=== PATIENT | male | born 1945 | race African-American/Black ===

== ENCOUNTER 2017-01-09 12:42 | Emergency (ER) | payer OTHER ==
[2017-01-09 12:48] VITALS: RESP 18
--- NOTE | 2017-01-09 15:06 | EDPHY ---
H & P Stated Complaint: tripped and fell last night hitting head and face/laceration/ denies loc Source: Patient Exam Limitations: No limitations - Personal History Current Tetanus/Diphtheria Vaccine: Unsure Tetanus Vaccine Date: < 10 YEARS - Medical/Surgical History Hx Asthma: No Hx Chronic Respiratory Disease: No Hx Diabetes: No Hx Cardiac Disease: No Hx Renal Disease: No Hx Cirrhosis: No Hx Alcoholism: No Hx HIV/AIDS: No Hx Splenectomy or Spleen Trauma: No Other PMH: htn - Social History Smoking Status: Never smoked Time Seen by Provider: 01/09/17 14:11 HPI/ROS: CHIEF COMPLAINT: Facial trauma, neck pain HISTORY OF PRESENT ILLNESS: Patient presents to the ED for evaluation of facial trauma, headache and neck pain. The patient had a mechanical fall last night. He fell while walking on concrete. He struck his right cheek. Since that time he has had a persistent headache and neck pain. The patient denies any acute numbness or weakness. The patient denies any chest, back or abdominal pain. The patient reports his symptoms are mild in nature. The patient is not anticoagulated. The patient denies any acute medical complaints such as chest pain or shortness of breath. REVIEW OF SYSTEMS: A comprehensive 10 point review of systems is otherwise negative aside from elements mentioned in the history of present illness. (Alex Lagos) - Physical Exam Exam: General Appearance: Alert, no distress Head: Superficial abrasion below right eye from likely injury from eye glasses , tenderness and soft tissue swelling noted over the right zygomatic arch Eyes: Pupils equal, round, reactive ENT, Mouth: No hemotympanum, no oral trauma Neck: Nontender, trachea midline, mild tenderness along the lateral aspect of the cervical spine Respiratory: No chest wall tender, subcutaneous air, lungs clear bilaterally Cardiovascular: Regular rate and rhythm Abdomen: Abdomen is soft and nontender, pelvis stable Skin: No lacerations, No abrasion Back: No midline T/L/S pain Extremities: Nontender, full range of motion Neurological: A&Ox3, normal motor function, normal sensory exam (Alex Lagos) Constitutional: Initial Vital Signs Temperature (C) 36.8 C 01/09/17 12:45 Heart Rate 81 01/09/17 12:45 Respiratory Rate 18 01/09/17 12:45 Blood Pressure 132/74 H 01/09/17 12:45 O2 Sat (%) 96 01/09/17 12:45 O2 Delivery Mode Room Air Allergies/Adverse Reactions: Sulfa (Sulfonamide Antibiotics) Allergy (Mild, Verified 01/09/17 12:45) DIZZY Home Medications: Medication Instructions Recorded Aspirin 81mg 05/28/10 Hyzaar 05/28/10 Lipitor 10 mg 05/28/10 Norvasc 5mg 05/28/10 Medical Decision Making ED Course/Re-evaluation: 3:40 p.m.-CT scan results discussed with the patient and his . They understand the need to follow up promptly for the lytic lesions in the cervical spine. No prior history of multiple myeloma or other tumor. The right cheek wound was cleansed. Tetanus given. (Joy Treviño) The patient presents to the emergency department for evaluation of headache and neck pain following a mechanical fall. The patient will be taken for a CT scan of the head and cervical spine given his complaints. My expectation is is the studies are negative the patient can be discharged home with customary aftercare instructions. Patient will have his tetanus updated. The patient will be turned over to Dr. Joy Treviño at shift change to take the results of his CT reports. (Alex Lagos) Differential Diagnosis: Differential diagnosis considered includes intracranial hemorrhage, skull fracture, facial bone fracture, cervical spine fracture (Alex Lagos) - Data Points Medications Given: Discontinued Medications Diphtheria/Tetanus/Acell Pertussis (Boostrix) 0.5 ml IM .ONCE ONE Stop: 01/09/17 16:07 Last Admin: 01/09/17 16:09 Dose: 0.5 ml Departure - Departure Disposition: Home, Routine, Self-Care Clinical Impression: Facial contusion, Cervical strain, acute Condition: Good Instructions: Facial Contusion (ED) Additional Instructions: 1. Take Ibuprofen or Motrin 600 mg by mouth three times a day. 2. Ice as directed 3. Return to the ED for severe headache, numbness, weakness or other concerns 4. Follow up with Dr. Gonzalez for further evaluation of the lytic lesions in cervical spine. Referrals: Parker Gonzalez MD [Primary Care Provider] - As per Instructions
[2017-01-09] MEDS ORDERED: TDAP ADULT 0.5 ML INJ (BOOSTRIX) IM ONE (16:06)
[2017-01-09 16:08] VITALS: BP 131/88; PULSE 74; TEMP 98.1; O2SAT 98
== END 2017-01-09 16:08 | disposition home or self-care (01) ==
DX: S16.1XXA Strain of muscle, fascia and tendon at neck level, initial encounter (principal); S00.83XA Contusion of other part of head, initial encounter; I10 Essential (primary) hypertension; Z23 Encounter for immunization; W18.39XA Other fall on same level, initial encounter; Y93.01 Activity, walking, marching and hiking

== ENCOUNTER 2017-11-24 19:15 | Inpatient (IN) | payer OTHER ==
[2017-11-24] MEDS ORDERED: ACETAMINOPHEN 500 MG TAB ONE (19:31)
[2017-11-24] MEDS ORDERED: ACETAMINOPHEN 500 MG TAB PO ONE (19:33)
--- NOTE | 2017-11-24 19:46 | EDPHY ---
H & P Stated Complaint: fver of unknown origin 3 ays Time Seen by Provider: 11/24/17 19:35 HPI/ROS: Chief Complaint: Fever HPI: 72-year-old male presenting with fevers, chills and fatigue for the last 3 days. He has not been taking any medicines for this. He has had increasing fatigue today and is presenting for evaluation. Denies cough. No pain abdominal pain. No rash. No urinary urgency or frequency. No chest pain or shortness of breath. No recent travel. No neck pain or stiffness. Has had a mild headache. Has a history of hypertension hyperlipidemia. Denies any other symptoms at this time. ROS: 10 point Review of Systems is negative except as noted in the HPI. PMH: Hypertension, hyperlipidemia Social History: No smoking, no alcohol, no recreational drug use Family History: non-contributory Physical Exam: Gen: Awake, Alert, uncomfortable appearing, warm to touch HEENT: Nose: no rhinorrhea Eyes: PERRLA, EOMI Mouth: Moist mucosa Neck: Supple, no JVD Chest: nontender, lungs clear to auscultation Heart: S1, S2 normal, no murmur, tachycardic Abd: Soft, non-tender, no guarding Back: no CVA tenderness, no midline tenderness Ext: no edema, non-tender Skin: no rash Neuro: CN II-XII intact, Sensation grossly intact, Strength 5/5 in bilateral upper and lower extremities - Personal History Current Tetanus/Diphtheria Vaccine: Yes Current Tetanus Diphtheria and Acellular Pertussis (TDAP): Yes Tetanus Vaccine Date: < 10 YEARS - Medical/Surgical History Hx Asthma: No Hx Chronic Respiratory Disease: No Hx Diabetes: No Hx Cardiac Disease: No Hx Renal Disease: No Hx Cirrhosis: No Hx Alcoholism: No Hx HIV/AIDS: No Hx Splenectomy or Spleen Trauma: No Other PMH: htn - Social History Smoking Status: Never smoked Constitutional: Initial Vital Signs Temperature (C) 39.5 C H 11/24/17 19:20 Heart Rate 104 H 11/24/17 19:20 Respiratory Rate 20 11/24/17 19:20 Blood Pressure 89/49 L 11/24/17 19:20 O2 Sat (%) 94 11/24/17 19:20 O2 Delivery Mode Nasal Cannula O2 (L/minute) 2 Allergies/Adverse Reactions: Sulfa (Sulfonamide Antibiotics) Allergy (Mild, Verified 01/09/17 12:45) DIZZY Home Medications: Medication Instructions Recorded Aspirin 81mg 05/28/10 Hyzaar 05/28/10 Lipitor 10 mg 05/28/10 Norvasc 5mg 05/28/10 Medical Decision Making - Diagnostics Imaging Results: Imaging Impressions Chest X-Ray 11/24/17 19:43 Impression: Mild bronchitis. No other findings for acute cardiopulmonary abnormality. ED Course/Re-evaluation: 9-year-old male who meets SIRS criteria with fever of unknown source. Will proceed down the sepsis pathway. Patient's lactic acid is noted at 3.7. Severe sepsis criteria has been met and documented. I have ordered 1 g of ceftriaxone IV. Still have no source face sinus symptoms or findings. Chest x-ray is negative. Awaiting urinalysis results. Patient is heart rate has come down after 2.5 L of fluid but remains hypotensive but his map is 63. . I discussed with Dr. Dewey, hospitalist. Will admit to the Step-Down Unit. Will continue to hydrate. Hold off on pressors at this time. Patient is feeling improved. - Data Points Laboratory Results: Laboratory Results 11/24/17 19:40 11/24/17 19:40 11/24/17 11/24/17 11/24/17 19:40 19:40 19:40 WBC 13.15 10^3/uL H 10^3/uL (3.80-9.50) RBC 4.22 10^6/uL L 10^6/uL (4.40-6.38) Hgb 13.2 g/dL L g/dL (13.7-17.5) Hct 39.3 % L % (40.0-51.0) MCV 93.1 fL fL (81.5-99.8) MCH 31.3 pg pg (27.9-34.1) MCHC 33.6 g/dL g/dL (32.4-36.7) RDW 13.1 % % (11.5-15.2) Plt Count 199 10^3/uL 10^3/uL (150-400) MPV 11.3 fL fL (8.7-11.7) Neut % (Auto) 88.2 % H % (39.3-74.2) Lymph % (Auto) 4.8 % L % (15.0-45.0) [place] % (Auto) 6.4 % % (4.5-13.0) Eos % (Auto) 0.0 % L % (0.6-7.6) Baso % (Auto) 0.1 % L % (0.3-1.7) Nucleat RBC Rel Count 0.0 % % (0.0-0.2) Absolute Neuts (auto) 11.61 10^3/uL H 10^3/uL (1.70-6.50) Absolute Lymphs (auto) 0.63 10^3/uL L 10^3/uL (1.00-3.00) Absolute Monos (auto) 0.84 10^3/uL H 10^3/uL (0.30-0.80) Absolute Eos (auto) 0.00 10^3/uL L 10^3/uL (0.03-0.40) Absolute Basos (auto) 0.01 10^3/uL L 10^3/uL (0.02-0.10) Absolute Nucleated RBC 0.00 10^3/uL 10^3/uL (0-0.01) Immature Gran % 0.5 % % (0.0-1.1) Immature Gran # 0.06 10^3/uL 10^3/uL (0.00-0.10) PT 14.4 SEC SEC (12.0-15.0) INR 1.10 (0.83-1.16) APTT 27.0 SEC SEC (23.0-38.0) VBG Lactic Acid Sodium 137 mEq/L mEq/L (135-145) Potassium 3.5 mEq/L mEq/L (3.3-5.0) Chloride 101 mEq/L mEq/L (97-110) Carbon Dioxide 23 mEq/l mEq/l (22-31) Anion Gap 13 mEq/L mEq/L (8-16) BUN 18 mg/dL mg/dL (7-23) Creatinine 1.2 mg/dL mg/dL (0.7-1.3) Estimated GFR 60 Glucose 154 mg/dL H mg/dL (70-100) Calcium 9.5 mg/dL mg/dL (8.5-10.4) Total Bilirubin 1.5 mg/dL H mg/dL (0.1-1.4) 11/24/17 19:40 WBC RBC Hgb Hct MCV MCH MCHC RDW Plt Count MPV Neut % (Auto) Lymph % (Auto) [place] % (Auto) Eos % (Auto) Baso % (Auto) Nucleat RBC Rel Count Absolute Neuts (auto) Absolute Lymphs (auto) Absolute Monos (auto) Absolute Eos (auto) Absolute Basos (auto) Absolute Nucleated RBC Immature Gran % Immature Gran # PT INR APTT VBG Lactic Acid 3.7 mmol/L H mmol/L (0.7-2.1) Sodium Potassium Chloride Carbon Dioxide Anion Gap BUN Creatinine Estimated GFR Glucose Calcium Total Bilirubin Medications Given: Discontinued Medications Acetaminophen (Tylenol) 1,000 mg PO EDNOW ONE Stop: 11/24/17 19:34 Last Admin: 11/24/17 19:34 Dose: 1,000 mg Sodium Chloride (Ns) 1,000 mls @ 0 mls/hr IV ONCE ONE; Wide Open PRN Reason: Protocol Stop: 11/24/17 19:49 Last Admin: 11/24/17 20:11 Dose: 1,000 mls Sodium Chloride (Ns) 1,000 mls @ 0 mls/hr IV ONCE ONE; Wide Open PRN Reason: Protocol Stop: 11/24/17 19:49 Last Admin: 11/24/17 20:11 Dose: 1,000 mls Ceftriaxone Sodium/Dextrose (Rocephin 1 Gm (Premix)) 50 mls @ 100 mls/hr IV EDNOW ONE PRN Reason: Protocol Stop: 11/24/17 20:36 Last Admin: 11/24/17 20:21 Dose: 50 mls Sodium Chloride (Ns) 2,500 mls @ 5,000 mls/hr 30 ml/kg infuse over 30 min ( 2500 ml) IV EDNOW ONE PRN Reason: Protocol Stop: 11/24/17 20:36 Last Admin: 11/24/17 20:24 Dose: 500 mls Departure - Departure Disposition: [facility] Acute Clinical Impression: Sepsis, Dehydration, Fever, unknown origin Condition: Serious Referrals: NONE *PRIMARY CARE P,. [Primary Care Provider] - As per Instructions
[2017-11-24] MEDS ORDERED: NS 1,000 ML IV ONE ×3 (19:48→21:28)
[2017-11-24 19:54] LABS: PLATELET COUNT 199 10^3/uL (150-400)
[2017-11-24 20:03] LABS: INR 1.1 (0.83-1.16); PROTIME(PATIENT) 14.4 SEC (12.0-15.0)
[2017-11-24] MEDS ORDERED: NS 2,500 ML IV ONE ×2 (20:07→21:36)
[2017-11-24] MEDS ORDERED: ONDANSETRON DISINTEGRATING 4 MG TAB PO PRN (21:36)
[2017-11-24] MEDS ORDERED: ALBUTEROL 3 ML DEYVIAL IH PRN (21:36)
[2017-11-24] MEDS ORDERED: ONDANSETRON 4 MG/2 ML VIAL IVP PRN (21:36)
[2017-11-24] MEDS ORDERED: IBUPROFEN 200 MG TAB PO PRN (21:36)
[2017-11-24] MEDS ORDERED: oxyCODONE IR 5 MG TAB PO PRN (21:36)
[2017-11-24] MEDS ORDERED: PROMETHAZINE HCL 25 MG/ML INJ IVP PRN (21:36)
[2017-11-24] MEDS ORDERED: CEFEPIME HCL 2 GM in NS 100 ML IV SCH (22:00)
[2017-11-24] MEDS: AZITHROMYCIN IV 500 MG in NS 250 ML IV SCH (22:24)
--- NOTE | 2017-11-24 22:30 | GHP ---
[f rep st] HISTORY AND PHYSICAL DATE OF ADMISSION: 11/24/2017 CHIEF COMPLAINT: Fever. HISTORY: This is a 72-year-old man with past medical history that includes hypertension and hyperlip idemia, who presents with fevers, rigors, and fatigue for 3 days. He notes today the fever was quite persistent and he is feeling increasingly fatigued. He denies any real localizing symptoms, includi ng cough, shortness of breath, nausea, vomiting, urinary complaints, diarrhea. He denies any rashes or skin lesions. He has not had any recent travel. He denies any recent sick contacts. PAST MEDICAL HISTORY: Includes hypertension and hyperlipidemia. PAST SURGICAL HISTORY: Reviewed and noncontributory. FAMILY HISTORY: This was reviewed and is noncontributory. SOCIAL HISTORY: Patient is a nonsmoker, nondrinker, nondrug user. He lives independently. REVIEW OF SYSTEMS: 10-point review of systems obtained and negative except as per HPI. MEDICATIONS: Include: 1. Amlodipine. 2. [place]-3 fatty acids. 3. Multivitamin. 4. Losartan/hydrochlorothiazide. 5. Latanoprost eyedrops. 6. Cholecalciferol. 7. Combigan. 8. Atorvastatin. ALLERGIES: Sulfa. PHYSICAL EXAM: VITAL SIGNS: BP 99/53, heart rate 92, respiratory rate 18, O2 saturation 94% on 2 L. T-max of 39.4. DATA: Labs are notable for a white blood cell count of 13.15, hematocrit 39.3. Lactic acid initiall y 3.7, then 1.6 post fluids. Bilirubin 1.5. Chest x-ray personally reviewed and interpreted, shows mild bronchitis. ASSESSMENT/PLAN: This is a 72-year-old man, past medical history of hypertension, hyperlipidemia, pr esenting with sepsis presumed secondary to pulmonary source. 1. Sepsis. Again, patient without real localizing symptoms, but persistent fever, elevated lactate, and mild hypotension on arrival. He has been started on the sepsis protocol and will be treated wit h cefepime and azithromycin for the time being. Again, I presume this is likely respiratory source g iven his mildly abnormal chest x-ray and mild hypoxia without any other obvious source noted at this time. Blood cultures and urine cultures are pending. 2. Bronchitis versus bronchopneumonia. Again, as per above. Started on ceftriaxone and Zithromax a nd with cultures pending. Respiratory PCR panel also pending at this time. 3. Hypertension with current hypotension. Holding his home blood pressure medications for the time being. 4. Hyperglycemia. This is a presumed stress response. We will recheck in the morning. 5. Acute kidney injury. Patient with mild increase in his creatinine from his usual baseline, at 1. 2 from usual 1.0. This is in the setting of sepsis and will trend. DISPOSITION: Observation status for the time being. Patient is new to my care. Old records reviewed, summarized as per HPI and past medical history. Ca re plan reviewed with Dr. Wayne in the emergency department, including plans for antibiotic therapy. /[id number]/MODL
[2017-11-25 05:19] LABS: PLATELET COUNT 159 10^3/uL (150-400)
--- NOTE | 2017-11-25 08:42 | HOSPPROG ---
Hospitalist Progress Note Assessment/Plan: #Severe sepsis: elevated lactate/WBC, fever and bacteremia. #Streptococcus bacteremia: cont CTX CAP: CTX/Azithro #Leukocytosis: up to 22. Cont CAP coverage. #Hypotension: improved with fluids #AHRF: CAP and mild volume overload. BNP elevated, NL EF #HLD: statin #h/o Benign HTN: hold BP meds #Mod MR/TR: watch with IVFs #Lactic acidosis: due to acute illness #Diet: regular #DVT ppx: Lovenox #Disp: cont inpatient admission for IV abx, culture pending Subjective: denies sxs other than fever. Occasional right sided mouth pain Objective: Vital Signs Temp Pulse Resp BP Pulse Ox 37.3 C 86 20 109/66 98 11/25/17 07:00 11/25/17 07:00 11/25/17 07:00 11/25/17 07:00 11/25/17 07:00 Laboratory Results 11/25/17 04:30 11/25/17 04:30 11/24/17 11/25/17 11/26/17 05:59 05:59 05:59 Intake Total 5750 Output Total 800 Balance 4950 PT 14.4 SEC (12.0-15.0) 11/24/17 19:40 INR 1.10 (0.83-1.16) 11/24/17 19:40 - Time Spent With Patient Time Spent with Patient: greater than 35 minutes Time Spent with Patient: Greater than 35 minutes spent on this patients care, greater than 50% of time spent counseling, educating, and coordinating care regarding the above mentioned plan. - Physical Exam Constitutional: no apparent distress Eyes: PERRL Ears, Nose, Mouth, Throat: moist mucous membranes, other (no oral ulcer, redness or abscess) Cardiovascular: regular rate and rhythym Respiratory: no rales or rhonchi, aegophony, other (decreased BS at bases, ) Gastrointestinal: normoactive bowel sounds Genitourinary: no bladder fullness Skin: warm Musculoskeletal: full muscle strength Neurologic: AAOx3, CN II-XII Intact Psychiatric: depressed ICD10 Worksheet Patient Problems: Problems Problem Status Onset Dehydration Acute Fever, unknown origin Acute Sepsis Acute
[2017-11-25] MEDS ORDERED: BRIMONIDINE/TIMOLOL 5 ML OPHT.BTL EACHEYE SCH ×2 (09:00→21:00)
[2017-11-25] MEDS: OMEGA-3 FATTY ACIDS 1,000 MG CAP PO SCH (09:29)
[2017-11-25] MEDS: ENOXAPARIN 40 MG/0.4 ML SYR SC SCH (09:29)
[2017-11-25] MEDS: ATORVASTATIN CALCIUM 10 MG TAB PO SCH (09:29)
[2017-11-25] MEDS: MULTIVITAMINS 1 EACH TAB PO SCH (09:29)
[2017-11-25] MEDS: CHOLECALCIFEROL VIT D3 1,000 UNITS TAB PO SCH (09:29)
--- NOTE | 2017-11-25 10:05 | CPEKG ---
Heart Rate: 92 RR Interval: 652 P-R Interval: 184 QRSD Interval: 86 QT Interval: 329 QTC Interval: 407 P [place]: 59 QRS [place]: -58 T Wave [place]: 22 EKG Severity - ABNORMAL ECG - EKG Impression: SINUS RHYTHM EKG Impression: LEFT ANTERIOR FASCICULAR BLOCK EKG Impression: BORDERLINE T WAVE ABNORMALITIES EKG Impression: INCOMPLETE RIGHT BUNDLE BRANCH BLOCK Electronically Signed By: Narciso Mathews 27-Nov-2017 08:11:56
[2017-11-25] MEDS: ACETAMINOPHEN 325 MG TAB PO PRN ×2 (11:46→21:24)
--- NOTE | 2017-11-25 13:35 | GCON ---
[f rep st] CONSULTATION PULMONARY CRITICAL CARE CONSULTATION DATE OF CONSULTATION: 11/25/2017 REASON FOR CONSULTATION: Fever, sepsis, pneumonia. HISTORY OF PRESENT ILLNESS: The patient is a relatively healthy 72-year-old gentleman who was admitted last night with a 2-3 day history of fevers, chills, and fatigue. He had an occasional dry cough, but was not bringing up any mucus. He denied any significant shortness of breath. He was febrile to over 39 degrees. On admission, he was tachycardic and hypotensive at approximately 90/50. He was admitted with a diagnosis of sepsis. Initial white blood cell count was elevated. Chest x-ray was within normal limits. Urinalysis was unremarkable. He was given saline and started on ceftriaxone and azithromycin. Followup chest x-ray today demonstrates the development of a left lower lobe infiltrate. Last night, he had increased shortness of breath, increased oxygen requirements, and a variable cough without sputum. PAST MEDICAL HISTORY: Remarkable for systemic hypertension and hyperlipidemia. MEDICATIONS: On admission, included losartan/hydrochlorothiazide, Norvasc, and Lipitor. Full he also has a history of glaucoma and is on eyedrops. SOCIAL HISTORY: . Alcohol and tobacco are negative. No recent travel. No exposure to individuals who have recently been sick. No pets. 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 FAMILY HISTORY: Noncontributory. There is no history of heart disease or lung disease. No urinary or GI problems. ALLERGIES: Sulfa preparations. PHYSICAL EXAMINATION: GENERAL: Reveals a pleasant gentleman who is awake and alert, watching soccer. VITAL SIGNS: Blood pressure is approximately 110/60, respiratory rate 24. On 2 L, saturations are 97%. Current temperature is 38.4. HEENT/NECK: Unremarkable for lymphadenopathy or thyromegaly. There is no jugular venous distention. No pharyngitis. PULMONARY: The chest reveals bibasilar rales, left greater than right with egophony at the left base. There are no rhonchi. There is no wheezing. HEART: Regular in rate and rhythm. There are no significant murmurs, no gallops. ABDOMEN: Soft, mildly distended with increased bowel tones. There is no tenderness. EXTREMITIES: Unremarkable for edema, cords, or tenderness. NEUROLOGIC: Examination is within normal limits. LABORATORY/IMAGING: X-ray is as outlined above, with a new left lower lobe infiltrate. White blood cell count is 22,000 with a shift to the left, hematocrit is 35.5, platelets are normal. PT and PTT are normal. Initial lactate was 3.7, on followup 2.3. Basic metabolic panel is within normal limits with the exception of a mildly low CO2 at 21, anion gap is normal, BUN and creatinine are normal. AST and ALT are mildly elevated at 81 and 85 respectively, with a normal bilirubin. BNP is 2000. Albumin 2.6. Procalcitonin elevated at 1.28. Urinalysis on admission was normal. ASSESSMENT and PLAN: Community-acquired left lower lobe pneumonia. Chest x- ray has progressed since admission and now shows a retrocardiac infiltrate in posterior left lower lobe. Examination is consistent with this. Respiratory panel is negative. Is being treated with ceftriaxone and azithromycin, appropriate for an unknown community-acquired pneumonia. He is on p.r.n. albuterol. No changes to Xopenex, secondary to relative tachycardia in this elderly gentleman. Chest x-ray and laboratory will be followed. A sputum culture can be obtained if he brings up any mucus. Current medications will be continued. Enoxaparin for DVT prophylaxis will be continued. Further plans and recommendations will be made based on his progress over the next 12-24 hours. /[id number]/MODL MTDD
--- NOTE | 2017-11-25 14:27 | ASMTCMCOM ---
CM Note CM Note Notes: 72yr old male admitted for Sepsis-PNA. He hasa Hx of HTN and HLD. Patient lives with his . Not anticipating that patient will have discharge needs. Date Signed: 11/25/2017 02:27 PM Electronically Signed By:Stacie Parham LCSW
[2017-11-25] MEDS: LEVALBUTEROL 1.25 MG/3 ML DEYVIAL IH SCH ×2 (14:34→22:15)
--- NOTE | 2017-11-25 14:52 | PDMN ---
Medical Necessity Medical necessity: Change to IP, as of 11/25/17, per MD; los >2 m for ongoing management of severe sepsis w/hypotension, elevated WBC & lactate r/t suspected lung source; admit to Step-Down ICU for further workup/monitoring, IVFs & IV abx ; per progress note & order 11/25/17
--- NOTE | 2017-11-25 15:43 | ECHO ---
[email or web address] [address] [address] Main: [phone] Fax: Transthoracic Echocardiogram Name: ERICKA HOPPER MR#: [id number] Study Date: 11/25/2017 Study Time: 02:04 PM Date of : 1945 Age: 72 year(s) Height: 180.3 cm (71 in.) Weight: 87.54 kg (193 lb.) BSA: 2.08 m2 Gender: Male Examination: Echo Indication: SOB/LE edema, elevated BNP Image Quality: Contrast: Requested by: Jacque Deras BP: 111 mmHg/61 mmHg Heart Rate: Rhythm: Indication: SOB/LE edema, elevated BNP Procedure Staff Chief Commercial Officer: Clara Bustos RDCS Reading Physician: Jayro Pratt MD Requesting Provider: Conclusions: No pericardial effusion. Moderate mitral regurgitation with left atrial enlargement. Normal right ventricular systolic pressure with moderate to severe tricuspid regurgitation. Ejection fraction of 70 75%. Measurements: Chambers Valvular Assessment AV/MV Valvular Assessment TV/PV Normal Normal Normal Name Value Range Name Value Range Name Value Range Ao Hilda (MM): 3.7 cm (2.2 cm-3.7 AV Vmax: 1.39 m/s (1 m/s-1.7 TR Vmax: 2.92 mm/s ( - ) cm) m/s) TR PGmax: 34 mmHg ( - ) IVSd (2D): 0.8 cm (0.6 cm-1.1 AV meanP mmHg ( - ) syst. PAP: 39 mmHg ( - ) cm) [place] (VTI): 3.0 cm ( - ) LVDd (2D): 4.4 cm (4.2 cm-5.9 MV E Vmax: 1.20 m/s ( - ) cm) MV A Vmax: 0.65 m/s ( - ) LVDs (2D): 2.3 cm (2.1 cm-4 MV E/A: 1.85 ( - ) cm) MV meanP mmHg ( - ) LVPWd (2D): 1.0 cm (0.6 cm-1 cm) MVA (Vmax): 2.4 m/s ( - ) LVOTd 2.1 cm 2.1 cm mm LVEF (MOD4): 74 % (>=55 %) EF Range: 70-75 % Continued Measurements: Chambers Valvular Assessment AV/MV Valvular Assessment TV/PV Name Value Name Value Name Value LADs: 4.1 cm MV Annulus: 3.5 cm CVP (est.): 5 mmHg LADs Lon.3 cm MV E' Septal: 0.11 m/s LA Area: 20.8 cm2 MV E/E' Septal: 10.50 MV E/E' Lateral: 11.00 Patient: ERICKA HOPPER Study Date: 11/25/2017 Page 1 of 2 02:04 PM MV VTI: 29.30 cm MR ERO: 0.180 cm2 MR PISA radius: 6 mm MR Reg. Volume: 23 ml MR Reg. Fraction: 8 % Findings: Left Ventricle: Normal size left ventricle. No LV hypertrophy. Global hypercontractility of the left ventricle. The ejection fraction is estimated to be 70-75 %. No regional wall motion abnormality. Normal diastolic LV function. Right Ventricle: Normal size right ventricle. Left Atrium: The left atrium is mildly dilated. Right Atrium: The right atrium is mildly dilated. Mitral Valve: The mitral valve is normal in appearance and function. Moderate mitral valve regurgitation is present. Aortic Valve: The aortic valve is normal in appearance and function. The aortic valve is tri-leaflet. Minimal aortic cusp calcification is noted. Tricuspid Valve: The tricuspid valve is normal in appearance and function. Moderate to severe tricuspid valve regurgitation. The pulmonary artery pressure is normal. Pulmonic Valve: The pulmonic valve is normal in appearance and function. Aorta: The aorta is normal. Pericardium: No pericardial effusion. (No Signature Object) Patient: ERICKA HOPPER Study Date: 11/25/2017 Page 2 of 2 02:04 PM [id number]
[2017-11-25] MEDS: BRIMONIDINE/TIMOLOL 5 ML OPHT.BTL EACHEYE SCH (20:12)
[2017-11-25] MEDS: LATANOPROST 0.005% 2.5 ML OPHT DROPS EACHEYE SCH (20:13)
[2017-11-25] MEDS: AZITHROMYCIN IV 500 MG in NS 250 ML IV SCH (20:54)
[2017-11-25] MEDS ORDERED: TIMOLOL 0.5% EACHEYE SCH (21:00)
[2017-11-26] MEDS: ACETAMINOPHEN 325 MG TAB PO PRN (02:22)
[2017-11-26 05:27] LABS: PLATELET COUNT 159 10^3/uL (150-400)
[2017-11-26] MEDS: LEVALBUTEROL 1.25 MG/3 ML DEYVIAL IH SCH ×3 (05:30→20:57)
[2017-11-26] MEDS: BRIMONIDINE/TIMOLOL 5 ML OPHT.BTL EACHEYE SCH ×2 (08:24→20:52)
[2017-11-26] MEDS: ENOXAPARIN 40 MG/0.4 ML SYR SC SCH (08:25)
[2017-11-26] MEDS ORDERED: POTASSIUM CL 20 MEQ/15 ML UDCUP PO ONE (08:49)
[2017-11-26] MEDS: CHOLECALCIFEROL VIT D3 1,000 UNITS TAB PO SCH (09:19)
[2017-11-26] MEDS: MULTIVITAMINS 1 EACH TAB PO SCH (09:19)
[2017-11-26] MEDS: ATORVASTATIN CALCIUM 10 MG TAB PO SCH (09:19)
[2017-11-26] MEDS: OMEGA-3 FATTY ACIDS 1,000 MG CAP PO SCH (09:19)
[2017-11-26] MEDS ORDERED: FUROSEMIDE 20 MG/2 ML VIAL IVP ONE ×2 (10:55→12:15)
[2017-11-26] MEDS ORDERED: PROTOCOL MAGNESIUM 1 DOSE IV PRN (10:56)
[2017-11-26] MEDS ORDERED: PROTOCOL POTASSIUM 1 DOSE MISC PRN (10:56)
--- NOTE | 2017-11-26 11:00 | HOSPPROG ---
Hospitalist Progress Note Assessment/Plan: #Severe sepsis: elevated lactate/WBC, fever and bacteremia. #Streptococcus bacteremia: cont abx CAP: CTX/Azithro #Leukocytosis: #Hypotension: resolved #AHRF: CAP and mild volume overload. BNP elevated, NL EF -Lasix x 1 #HLD: statin #h/o Benign HTN: hold BP meds #Mod MR/TR: monitor #Lactic acidosis: due to acute illness #Diet: regular #DVT ppx: Lovenox Plan -Lasix low dose x 1 -likely able to transfer out of the SDU today -Cont abx as is -repeat lactic acid to document resolution d/w team during ICU rounds Subjective: Feeling better. Some swelling at legs. no cp, down to 2 L O2 Objective: Vital Signs Temp Pulse Resp BP Pulse Ox 36.9 C 79 15 115/65 92 11/26/17 08:20 11/26/17 08:20 11/26/17 08:20 11/26/17 08:20 11/26/17 08:20 Laboratory Results 11/26/17 05:15 11/26/17 05:15 11/25/17 11/26/17 11/27/17 05:59 05:59 05:59 Intake Total 1705 Output Total 775 Balance 930 PT 14.4 SEC (12.0-15.0) 11/24/17 19:40 INR 1.10 (0.83-1.16) 11/24/17 19:40 - Physical Exam Constitutional: no apparent distress Eyes: PERRL, EOMI Ears, Nose, Mouth, Throat: moist mucous membranes, hearing normal, ears appear normal Cardiovascular: regular rate and rhythym, edema (trace) Respiratory: reduced air movement Gastrointestinal: normoactive bowel sounds, soft, non-tender abdomen Skin: warm Neurologic: AAOx3 Psychiatric: interacting appropriately, not anxious, not encephalopathic Lymph, Heme, Immunologic: No petechiae ICD10 Worksheet Patient Problems: Problems Problem Status Onset Dehydration Acute Fever, unknown origin Acute Sepsis Acute
--- NOTE | 2017-11-26 11:58 | PDINTPN ---
[employer] Manager Progress Note Assessment/Plan: Assessment: Febrile illness with bacteremia, secondary to pneumonia, community-acquired. Improving. Fevers resolving. He had little in the way of pulmonary symptoms on presentation, did develop some cough and hypoxemia following admission. Better now. Causative organism probably Streptococcus. Final ID pending, sensitivities pending. Possible anaerobic organism however this likely will end up being the same Streptococcus. Metabolic: Hypokalemia. On replacement protocol. History of hypertension and hyperlipidemia. Blood pressure is borderline. Losartan/hydrochlorothiazide on hold. Prophylaxis: On enoxaparin. Eating. Plan: Continue care in the hospital. Can transfer to a medical-surgical bed. Continue present antibiotics for now. Continue bronchopulmonary treatments. Await further ID and sensitivities from micro. Increase ambulation. Add IS. Follow x-ray intermittently at this point, follow laboratory. Discussed with the patient, his , hospitalist, and the ICU multi disciplinary team. Subjective: Feels better. Denies cough or mucus. Denies shortness of breath. No chest pain. On 2 L Objective: Vital Signs Temp Pulse Resp BP Pulse Ox 36.9 C 77 20 99/53 L 95 11/26/17 11:36 11/26/17 11:36 11/26/17 11:36 11/26/17 11:36 11/26/17 11:36 Laboratory Results 11/26/17 05:15 11/26/17 05:15 11/25/17 11/26/17 11/27/17 05:59 05:59 05:59 Intake Total 1705 Output Total 775 Balance 930 PT 14.4 SEC (12.0-15.0) 11/24/17 19:40 INR 1.10 (0.83-1.16) 11/24/17 19:40 Blood Cultures: A aerobic bottle growing Streptococcus in pairs. Final ID and sensitivity pending. On anaerobic plates there may be a Gram-negative coccobacilli verses strep as well that has partially decolorized. CXR: Increased bibasilar opacities, especially on the left. Possible small effusion on the left Physical Exam - Physical Exam General Appearance: alert, no apparent distress, other (Up in chair) EENT: other (Nasal cannula in place at 2 L) Neck: normal inspection (No JVD) Respiratory: lungs clear (Anteriorly), decreased breath sounds (At both bases), rales (Present at bases), other (Some dullness at the left base), No rhonchi, No wheezing Cardiac/Chest: regular rate, rhythm, No gallop Abdomen: normal bowel sounds, non-tender, soft Skin: normal color, warm/dry Extremities: No pedal edema Neuro/Psych: no motor/sensory deficits, No cognition abnormalities ICD10 Worksheet Patient Problems: Problems Problem Status Onset Sepsis Acute Dehydration Acute Fever, unknown origin Acute
[2017-11-26] MEDS: LATANOPROST 0.005% 2.5 ML OPHT DROPS EACHEYE SCH (20:52)
[2017-11-26] MEDS ORDERED: POTASSIUM CL 10 MEQ TAB PO ONE (20:55)
[2017-11-26] MEDS: AZITHROMYCIN IV 500 MG in NS 250 ML IV SCH (21:17)
[2017-11-27] MEDS: ACETAMINOPHEN 325 MG TAB PO PRN (01:01)
[2017-11-27] MEDS ORDERED: BENZONATATE 100 MG CAP PO PRN (01:48)
[2017-11-27] MEDS ORDERED: CEPACOL LOZENGE PO PRN (01:48)
[2017-11-27] MEDS: LEVALBUTEROL 1.25 MG/3 ML DEYVIAL IH SCH ×3 (05:07→21:04)
[2017-11-27] MEDS ORDERED: POTASSIUM CL 10 MEQ TAB PO ONE ×2 (07:32→20:53)
[2017-11-27] MEDS: BRIMONIDINE/TIMOLOL 5 ML OPHT.BTL EACHEYE SCH ×2 (08:23→20:36)
[2017-11-27] MEDS: MULTIVITAMINS 1 EACH TAB PO SCH (08:23)
[2017-11-27] MEDS: CHOLECALCIFEROL VIT D3 1,000 UNITS TAB PO SCH (08:23)
[2017-11-27] MEDS: OMEGA-3 FATTY ACIDS 1,000 MG CAP PO SCH (08:23)
[2017-11-27] MEDS: ATORVASTATIN CALCIUM 10 MG TAB PO SCH (08:24)
[2017-11-27] MEDS: ENOXAPARIN 40 MG/0.4 ML SYR SC SCH (08:26)
[2017-11-27] MEDS ORDERED: FUROSEMIDE 20 MG/2 ML VIAL IVP ONE (09:29)
--- NOTE | 2017-11-27 11:36 | HOSPPROG ---
Hospitalist Progress Note Assessment/Plan: #Severe sepsis: elevated lactate/WBC, fever and bacteremia. #Streptococcus bacteremia: cont abx, still with fever last night CAP: CTX/Azithro #Leukocytosis #Hypotension: resolved #AHRF: CAP and mild volume overload. BNP elevated, NL EF -Lasix x 1 #HLD: statin #h/o Benign HTN: hold BP meds #Mod MR/TR: monitor #Lactic acidosis: due to acute illness #Diet: regular #DVT ppx: Lovenox Plan -cont abx as is, fever last night noted. Repeat CXR and PC tomorrow. -Was not able to give Lasix yesterday, will give today -Xopenex -cont to hold Losartan and HCTZ today, may restart soon -PT eval -repeat CXR tomorrow -repeat pc tomorrow -Lovenox for DVT proph Keep inpatient Subjective: still with pedal edema. O2 nees are improving. no cp. Objective: Vital Signs Temp Pulse Resp BP Pulse Ox 37.3 C 84 16 135/71 H 94 11/27/17 08:00 11/27/17 08:00 11/27/17 08:00 11/27/17 08:00 11/27/17 08:00 Laboratory Results 11/26/17 05:15 11/27/17 05:30 11/26/17 11/27/17 11/28/17 05:59 05:59 05:59 Intake Total 1705 1040 1000 Output Total 775 625 Balance 829 439 9601 PT 14.4 SEC (12.0-15.0) 11/24/17 19:40 INR 1.10 (0.83-1.16) 11/24/17 19:40 - Physical Exam Constitutional: no apparent distress Eyes: PERRL, EOMI Ears, Nose, Mouth, Throat: moist mucous membranes, hearing normal Cardiovascular: regular rate and rhythym, edema (trace) Respiratory: reduced air movement Gastrointestinal: normoactive bowel sounds, soft, non-tender abdomen, no palpable masses Skin: warm Neurologic: AAOx3 Psychiatric: interacting appropriately, not anxious, not encephalopathic Lymph, Heme, Immunologic: No petechiae ICD10 Worksheet Patient Problems: Problems Problem Status Onset Dehydration Acute Fever, unknown origin Acute Sepsis Acute
--- NOTE | 2017-11-27 12:29 | SOAPPROG ---
SOAP Progress Note Assessment/Plan: Assessment: Febrile illness with bacteremia, secondary to pneumonia, community-acquired. Improving. Fevers resolving. He had little in the way of pulmonary symptoms on presentation, did develop some cough and hypoxemia following admission. Better now. Causative organism Streptococcus intermedius. On appropriate antibiotics. Chest x-ray improving. No evidence of abscess or empyema. Metabolic: Hypokalemia. On replacement protocol. History of hypertension and hyperlipidemia. Blood pressure is borderline. Losartan/hydrochlorothiazide on hold. Prophylaxis: On enoxaparin. Eating. Plan: Continue care in the hospital today. Continue present antibiotics for now. Probably home tomorrow on oral antibiotics to complete a 10 day course. Continue present antibiotics for now. Continue bronchopulmonary treatments. Await sensitivities from micro. Increase ambulation. I will plan on seeing him back as an outpatient with a follow-up x-ray. Discussed with the patient. Subjective: Doing well. Feels better. Denies cough or shortness of breath. Still febrile Objective: Vital Signs Temp Pulse Resp BP Pulse Ox 37.3 C 84 16 135/71 H 94 11/27/17 08:00 11/27/17 08:00 11/27/17 08:00 11/27/17 08:00 11/27/17 08:00 Laboratory Results 11/26/17 05:15 11/27/17 05:30 11/26/17 11/27/17 11/28/17 05:59 05:59 05:59 Intake Total 1705 1040 1000 Output Total 775 625 Balance 051 663 8595 PT 14.4 SEC (12.0-15.0) 11/24/17 19:40 INR 1.10 (0.83-1.16) 11/24/17 19:40 CXR: Improved bilaterally, especially on the left. Physical Exam - Physical Exam General Appearance: alert, no apparent distress EENT: PERRL/EOMI, other (No obvious dental abscess, no submandibular cervical adenopathy.) Neck: normal inspection Respiratory: lungs clear (Anteriorly), decreased breath sounds (At bases), rales (Scattered rales at bases), No rhonchi, No wheezing Cardiac/Chest: regular rate, rhythm Abdomen: normal bowel sounds, non-tender, soft Skin: normal color, warm/dry Extremities: pedal edema (1+) Neuro/Psych: no motor/sensory deficits, No cognition abnormalities ICD10 Worksheet Patient Problems: Problems Problem Status Onset Sepsis Acute Dehydration Acute Fever, unknown origin Acute
[2017-11-27] MEDS: LATANOPROST 0.005% 2.5 ML OPHT DROPS EACHEYE SCH (20:36)
[2017-11-27] MEDS: AZITHROMYCIN IV 500 MG in NS 250 ML IV SCH (21:27)
[2017-11-28] MEDS: LEVALBUTEROL 1.25 MG/3 ML DEYVIAL IH SCH (05:41)
[2017-11-28] MEDS ORDERED: POTASSIUM CL 10 MEQ TAB PO ONE (07:23)
[2017-11-28 08:12] VITALS: BP 140/78
[2017-11-28] MEDS: BRIMONIDINE/TIMOLOL 5 ML OPHT.BTL EACHEYE SCH (08:24)
[2017-11-28] MEDS: ATORVASTATIN CALCIUM 10 MG TAB PO SCH (08:24)
[2017-11-28] MEDS: CHOLECALCIFEROL VIT D3 1,000 UNITS TAB PO SCH (08:24)
[2017-11-28] MEDS: OMEGA-3 FATTY ACIDS 1,000 MG CAP PO SCH (08:24)
[2017-11-28] MEDS: MULTIVITAMINS 1 EACH TAB PO SCH (08:24)
[2017-11-28] MEDS: ENOXAPARIN 40 MG/0.4 ML SYR SC SCH (08:25)
--- NOTE | 2017-11-28 13:12 | SOAPPROG ---
SOAP Progress Note Assessment/Plan: Assessment: Febrile illness with bacteremia, secondary to pneumonia, community-acquired. Improving. Fevers resolving. He had little in the way of pulmonary symptoms on presentation, did develop some cough and hypoxemia following admission. Resolved now. Causative organism Streptococcus intermedius. On ceftriaxone and azithromycin. Chest x-ray improved. No evidence of abscess or empyema. Can be discharged today on oral antibiotics (Augmentin) Metabolic: Hypokalemia. On replacement protocol. History of hypertension and hyperlipidemia. Blood pressure is borderline. Losartan/hydrochlorothiazide can be restarted on discharge. Prophylaxis: On enoxaparin. Eating. Plan: Discharge home today on Augmentin 875 twice daily for 7 days. I will see him back in the office in 4-6 weeks if he does well. A new chest x-ray will be done at that time. If he has a setback he is to call the office and can be brought back in earlier. Discussed with the patient and the hospitalist. Subjective: Feels better, no cough, no shortness of breath. No recurrent fevers. Objective: Vital Signs Temp Pulse Resp BP Pulse Ox 37.2 C 80 16 140/78 H 95 11/28/17 08:00 11/28/17 08:00 11/28/17 08:00 11/28/17 08:00 11/28/17 08:00 Laboratory Results 11/28/17 06:48 11/28/17 05:20 11/27/17 11/28/17 11/29/17 05:59 05:59 05:59 Intake Total 1040 2030 Output Total 625 Balance 415 2030 PT 14.4 SEC (12.0-15.0) 11/24/17 19:40 INR 1.10 (0.83-1.16) 11/24/17 19:40 CXR: Infiltrates have resolved Physical Exam - Physical Exam General Appearance: alert, no apparent distress EENT: other (On room air) Neck: normal inspection Respiratory: lungs clear Cardiac/Chest: regular rate, rhythm Abdomen: normal bowel sounds, non-tender, soft Skin: normal color, warm/dry Extremities: pedal edema (Trace to 1+) Neuro/Psych: no motor/sensory deficits, No cognition abnormalities ICD10 Worksheet Patient Problems: Problems Problem Status Onset Sepsis Acute Dehydration Acute Fever, unknown origin Acute
--- NOTE | 2017-11-28 13:15 | PDDCSUM ---
Discharge Summary Discharge Summary: Consultants: Dr. Evgeny Tran, Pulmonology HPI/Hospital Course This is a 72 yo male who was admitted with sepsis likely due to CAP. He was admitted into the ICU. He was treated/managed accordingly. He improved slowly. At the time of d/c he is stable on RA. BCx's grew back Strep Intermedius, sensitivities are not back. He was treated with IV Rocephin and Azithromycin. He will be transitioned to Augment x 7 more days at the time of d/c. CXR has improved. He will f/u with Dr. Tran. BP was soft throughout his hospitalization. At the time of DC, Amlodipine is being restarted. HCTZ/Losartan is being held. Please see below for details per problem list. DDX: #Severe sepsis: elevated lactate/WBC, fever and bacteremia. #Streptococcus bacteremia: cont abx #CAP #Leukocytosis #Hypotension: resolved #AHRF: CAP and mild volume overload. BNP elevated, NL EF -s/p Lasix x 1 #HLD: statin #h/o Benign HTN: hold BP meds #Mod MR/TR: monitor #Lactic acidosis: due to acute illness Exam: NAD AAOX3 RRR DECREASED LUNG SOUNDS S/NT/ND TRACE LE EDEMA Meds: per med rec f/u: per above total time spent on d/c is 35 mins
[2017-11-28] MEDS ORDERED: FUROSEMIDE 20 MG TAB PO ONE (13:16)
--- NOTE | 2017-11-28 13:41 | ASMTDCNOTE ---
Case Management Discharge Discharge Order Complete? Answers: Yes Patient to Obtain Answers: Independently Medications Transportation Arranged Answers: Family/Friends Family Notified Answers: Yes Discharge Comments Notes: Patient discharged to home, no needs. Date Signed: 11/28/2017 01:40 PM Electronically Signed By:Pavithra Burnham RN
== END 2017-11-28 13:50 | disposition home or self-care (01) | DRG 871 ==
LOC: INTOOBSV 21:14 → F2N 21:50 → OBSVTOIN 11-25 14:04 → F2N 11-25 15:29
PROVIDERS: ADMIT Internal Medicine; ATTEND Internal Medicine
DX: A40.9 Streptococcal sepsis, unspecified (principal); R65.20 Severe sepsis without septic shock; J18.9 Pneumonia, unspecified organism; J96.01 Acute respiratory failure with hypoxia; E87.6 Hypokalemia; E87.2 Acidosis; D72.829 Elevated white blood cell count, unspecified; I08.1 Rheumatic disorders of both mitral and tricuspid valves; I10 Essential (primary) hypertension; E78.5 Hyperlipidemia, unspecified
CPT/HCPCS: 96365; G0378; J0456; J0692; J0696; J1650; J1940

== ENCOUNTER → 2018-01-20 | Outpatient (CLI) | payer OTHER | LOC: FIMAGING 15:26 | PROVIDERS: ATTEND Internal Medicine Pulmonary Disease | DX: Z09 Encounter for follow-up examination after completed treatment for conditions other than malignant neoplasm (principal) ==